=== PATIENT | male | born 2000 | race Caucasian/White ===

== ENCOUNTER 2023-11-24 15:21 | Outpatient (AMB) | payer OTHER, SELFPAY ==
--- NOTE | 2023-11-24 15:54 | MHC.PC.OV ---
Vital Signs 11/24/23 16:02 Height 6 ft 0.2 in Weight 175 lb 6 oz BMI 23.7 BP 116/70 Blood Pressure Location Rt brachial Position Sitting Respiration 16 Pulse 111 H Pulse Source Pulse Oximeter Temp 98.7 F Temp Source Oral Pulse Oximetry (%) 99 Oxygen Delivery Method Room Air Intake Visit Reasons: Establish [facility] [place] Intake Note: New patient visit Accompanied by: Mother Allergies No Known Allergies Allergy (Verified 11/24/23 15:58) Medication List - Last Reconciled 11/24/23 by Mandy Lorenzo MD cetirizine (Children's Zyrtec Allergy) 10 mg PO DAILY psyllium husk (Metamucil) 0.4 grams PO DAILY Saccharomyces boulardii (Digest Probiotic (S.boulardii)) 250 mg PO BID Tobacco use date assessed: 11/24/23 Dental Screening Dental Screen Date: 11/24/23 Did you have a dental visit in the last 12 months?: Yes Did you have a dental problem in the last 6 months where you did not have access to dental care?: No Was dental information given to patient?: Patient has dentist HPI HPI Comments History of Present Illness Details This is a 23 year old male presenting to [facility]. Transferring from pediatrics. Accompanied by mom today 2 concern today -Patient has had chronic issues with anxiety, mild consequent depressive symptoms. As he has aged anxiety seems to have gotten worse or seems to be effecting the quality of life more. For example he went to get his drivers permit. He was so anxious about driving he has been unable to pursue driving alone. He gets fearful about about trying new things, works etc. His sister recently started sertraline with good response. He would be interested in trying this medication. No SI/SA -Patient report ~1 year history of frequent loose stools. He can have 3-4 watery/loose stools per day. Reports kind of chronic but much worse over the past year. Denies blood in the stool. Denies unintentional weight loss. Denies abdominal pain, denies cramping. Denies use of abx, denies travel prior to start of worsened symptoms. Denies worsens with stress. Worse with mild products ROS see HPI PHYSICAL EXAM: GENERAL: Alert and oriented x 3. NAD EYES: EOMI. Anicteric. HENT: Moist mucous membranes. No scleral icterus. No cervical lymphadenopathy. LUNGS: Clear to auscultation bilaterally. CARDIOVASCULAR: Regular rate and rhythm. No murmur. No JVD. ABDOMEN: Soft, non-tender +bs EXTREMITIES: No edema. Non-tender. SKIN: No rashes or lesions. Warm. NEUROLOGIC: No focal neurological deficits. CN II-XII grossly intact PSYCHIATRIC: Cooperative. Appropriate mood and affect [facility] Family History (Updated 11/24/23 @ 16:11 by Adrienne Callejas [facility]) Maternal Grandmother Diabetes Maternal Grandfather Cancer Paternal Grandfather Alcoholism Paternal Grandmother Alcoholism Other Substance use Social History (Updated 11/24/23 @ 16:10 by Adrienne Callejas CMA) Housing: House Patient Tobacco Use Status: Never used Tobacco (Just tried it. ) e-Cigarette/Vaping Use: Never Used Second Hand Smoke Exposure: Yes service: No Current occupational status: unemployed Cognitive needs: No Hearing needs: No Vision needs: No Questionnaire PHQ-9 Over the last 2 weeks, how often have you been bothered by any of the following problems? 1. Little interest or pleasure in doing things: several days 2. Feeling down, depressed, or hopeless: not at all 3. Trouble falling or staying asleep, or sleeping too much: several days 4. Feeling tired or having little energy: more than half the days 5. Poor appetite or overeating: several days 6. Feeling bad about yourself - or that you are a failure or have let yourself or your family down: nearly every day 7. Trouble concentrating on things, such as reading the newspaper or watching television: several days 8. Moving or speaking so slowly that other people could have noticed. Or the opposite - being so fidgety or restless that you have been moving around a lot more than usual: several days 9. Thoughts that you would be better off or of hurting yourself in some way: not at all Total score: 10 Depression Screening Interpretation: Positive Depression Screening Follow-up: New Medication prescribed Depression Screening Done: Yes Source: Developed by Drs. Contreras Mann, Fariba Harden, John De Los Santos and colleagues, with an educational giovanna from [employer]. Thrive Questionnaire Date Thrive assessed: 11/24/23 I am a: Patient What is your living situation today?: I have a steady place to live Within the past 12 months, did the food you bought not last and you didn't have the money to get more?: Never true Within the past 12 months, did you worry whether your food would run out before you got money to buy more?: Never true Do you have trouble paying for medicines?: No Do you have trouble getting transportation to medical appointments?: No Do you have trouble paying your heating and electricity bill?: No Do you have trouble taking care of your child, family member or friend?: No Do you have trouble with day-to-day activities such as bathing, preparing meals, shopping, managing finances, etc.?: No Are you currently unemployed and looking for a job?: No Are you interested in more education?: No Please select the resources that you would like help with: None Currently or been in a relationship where the following occur: no concerns reported THRIVE Score: 0 AUDIT C Alcohol Use Questionnaire (AUDIT-C) 1. How often do you have a drink containing alcohol?: Monthly or less (Beer every couple months) 2. How many drinks containing alcohol do you have on a typical day when you are drinking?: 1 or 2 3. How often do you have six or more drinks on one occasion?: Never Total Score: 1 RELL-7 AMB Questionnaire RELL-7 Date RELL - 7 assessed: 11/24/23 Feeling nervous, anxious, or on edge: 2 = More than half the days Not being able to stop or control worryin = Several days Worrying too much about different things: 1 = Several days Trouble relaxin = Several days Being so restless that it is hard to sit still: 1 = Several days Becoming easily annoyed or irritable: 0 = Not at all Feeling afraid as if something awful might happen: 0 = Not at all Total RELL-7 score (0-4 normal; 5-9 mild; 10-14 moderate; 15-21 severe): 6 Source: Developed by Drs. Contreras Mann, Fariba Harden, John De Los Santos and colleagues, with an educational giovanna from [email or web address] RELL-7 Assessment Billing RELL-7 Assessment Tool: RELL-7 Assessment 82929 Physical exam (Primary Care) Vital Signs: Last Vital Signs Temp 98.7 F 11/24/23 16:02 Pulse 111 H 11/24/23 16:02 Resp 16 11/24/23 16:02 BP 116/70 11/24/23 16:02 Pulse Ox 99 11/24/23 16:02 Oxygen Delivery Method Room Air 11/24/23 16:02 BMI result Body Mass Index 23.7 Tobacco/Smoking Status: Tobacco use Status Tobacco use date assessed 11/24/23 11/24/23 16:06 Patient Tobacco Use Status Never used Tobacco (Just 11/24/23 16:10 tried it. ) e-Cigarette/Vaping Use Never Used 11/24/23 16:10 PHQ-9: PHQ-9 Score PHQ-9: Total score 10 11/26/23 10:14 Depression Screening Interpretation: Positive Depression Screening Follow-up: New Medication prescribed Thrive Assessment: Date of Thrive Assessment Date Thrive assessed 11/24/23 11/24/23 16:12 Currently or been in a relationship where the following occur: no concerns reported Assessment and Plan Assessment & Plan (1) Food allergy: Comment: referral to Allergy, Immunology Code(s): Z91.018 - Allergy to other foods (2) Frequent loose stools: Comment: labs & stool testing ordered. referral to AI. Will consider GI referral Code(s): R19.7 - Diarrhea, unspecified Qualifiers: Diarrhea type: unspecified type Qualified Code(s): R19.7 - Diarrhea, unspecified Orders: Orders TSH reflex Free T4 11/24/23 R19.7 - Diarrhea, unspecified, Z91.018 - Allergy to other foods Comprehensive Met. Panel 11/24/23 R19.7 - Diarrhea, unspecified, Z91.018 - Allergy to other foods H pylori Ag Stool 11/24/23 R19.7 - Diarrhea, unspecified, Z91.018 - Allergy to other foods Giardia Ag Stool EIA 11/24/23 R19.7 - Diarrhea, unspecified, Z91.018 - Allergy to other foods Calprotectin, Fecal 11/24/23 R19.7 - Diarrhea, unspecified, Z91.018 - Allergy to other foods Celiac Disease Panel 11/24/23 R19.7 - Diarrhea, unspecified, Z91.018 - Allergy to other foods Complete Blood Count Auto Diff 11/24/23 R19.7 - Diarrhea, unspecified, Z91.018 - Allergy to other foods Leukocytes Stool Qualitative 11/24/23 R19.7 - Diarrhea, unspecified, Z91.018 - Allergy to other foods Pancreatic Elastase-1 11/24/23 R19.7 - Diarrhea, unspecified, Z91.018 - Allergy to other foods Referrals Allergy & Immunology Referral R19.7 - Diarrhea, unspecified, Z91.018 - Allergy to other foods Medications: New sertraline Take 1/2 tab oral daily for one week then take 1 tab oral daily 25 mg PO DAILY 90 tabs 0RF 90 days Coding Level of Care Code New Pt Level 5 (41624) Diagnoses Food allergy Z91.018 Diarrhea, unspecified type R19.7 Diarrhea type: unspecified type Additional Codes RELL-7 Assessment Billing - RELL-7 Assessment Tool: RELL-7 Assessment 73237 ([id number]) Time Spent (min) 62
[2023-11-24 16:02] VITALS: BP 116/70; PULSE 111; RESP 16; TEMP 37.1; O2SAT 99; BMI 23.7
== END 2023-11-24 16:45 | disposition home or self-care (01) ==
PROVIDERS: Visit Provider Internal Medicine
DX: R19.7 Diarrhea, unspecified (principal); Z91.018 Allergy to other foods; F41.9 Anxiety disorder, unspecified
CPT/HCPCS: 96127; 99205

== ENCOUNTER 2024-01-03 13:53 | Outpatient (REF) | payer OTHER, SELFPAY ==
[2024-01-03 17:54] LABS: MANUAL DIFF FLAG NO
[2024-01-03 17:59] LABS: Basophils Percent Auto 0.9 % (0-2); Eosinophils Absolute Auto 0.1 X10*3/uL (0.0-0.4); Eosinophils Percent Auto 2.8 % (0-4); Hematocrit 44.4 % (42.0-52.0); Hemoglobin 15.3 g/dl (14.0-18.0); Imm Gran Abs Auto 0.01 X10*3/uL (0.00-0.03); Imm Gran Pct Auto 0.2 % (0.0-0.4); Lymphocytes Absolute Auto 1.7 X10*3/uL (1.2-4.9); Lymphocytes Percent Auto 40.1 % (20-40); Mean Corpuscular HGB Conc 34.5 g/dl (31.0-36.0); Mean Corpuscular Hemoglobin 29.8 pg (27.0-33.0); Mean Corpuscular Volume 86.4 fL (80.0-98.0); Monocytes Absolute Auto 0.4 X10*3/uL (0.1-1.2); Monocytes Percent Auto 10.3 % (2-11); Neutrophils Percent Auto 45.7 % (45-73); Platelet Count 262 X10*3/uL (160-400); Red Blood Count 5.14 X10*6/uL (4.60-5.80); Red Cell Distribution Width 12.4 % (11.0-16.0); White Blood Count 4.3 X10*3/uL (4.8-10.8)
[2024-01-03 18:47] LABS: Alanine Aminotransferase 14 U/L (0-40); Albumin Level 4.8 g/dL (3.5-5.0); Alkaline Phosphatase 87 U/L (39-117); Anion Gap 12 (12-20); Aspartate Amino Transferase 19 U/L (5-37); Bilirubin Total 1.1 mg/dL (0.0-1.0); Blood Urea Nitrogen 12 mg/dL (9-16); Carbon Dioxide 27 mmol/L (22-29); Chloride 106 mmol/L (96-108); Estimated Glomerular Filt Rate > 60; Glucose Random 91 mg/dL (60-115); Potassium 3.8 mmol/L (3.3-5.1); Sodium 141 mmol/L (135-145); Total Protein 7.3 g/dL (6.5-8.0)
[2024-01-03 19:02] LABS: TSH reflex Free T4 0.59 uIU/mL (0.32-4.0)
== END 2024-01-03 13:54 | disposition home or self-care (01) ==
LOC: HO.WFDLDS 13:53
PROVIDERS: Visit Provider Internal Medicine
DX: R19.7 Diarrhea, unspecified (principal); Z91.018 Allergy to other foods
CPT/HCPCS: 36415; 80053; 84443; 85025

== ENCOUNTER 2024-01-26 11:18 | Outpatient (AMB) | payer OTHER, SELFPAY ==
[2024-01-26 11:24] VITALS: BP 134/66; PULSE 71; RESP 12; O2SAT 98; BMI 23.7
--- NOTE | 2024-01-26 11:24 | MHC.PC.OV ---
Vital Signs 01/26/24 11:24 Height 6 ft Weight 175 lb BMI 23.7 BP 134/66 Blood Pressure Location Lt brachial Position Sitting Respiration 12 Pulse 71 Pulse Source Pulse Oximeter Pulse Oximetry (%) 98 Oxygen Delivery Method Room Air Intake Visit Reasons: f/up anxiety, GI Intake Note: Patient is here to follow up for anxiety and abdominal concerns. Patient reports no new concerns at this time. Athletic Coach Required: No Accompanied by: Self / Same As Patient Allergies No Known Allergies Allergy (Verified 01/26/24 11:29) Tobacco use date assessed: 11/24/23 Dental Screening Dental Screen Date: 11/24/23 HPI HPI Comments History of Present Illness Details This is a 23 year old male presenting for follow up 2 ongoing concerns -the patient has not any benefit on sertraline 25 mg daily. He denies worsening of symptoms. He denies side effects of medication. has had chronic issues with anxiety, mild consequent depressive symptoms. As he has aged anxiety seems to have gotten worse or seems to be effecting the quality of life more. For example he went to get his drivers permit. He was so anxious about driving he has been unable to pursue driving alone. He gets fearful about about trying new things, works etc. His sister recently started sertraline with good response. He would be interested in trying this medication. No SI/SA -Patient report ~1 year history of frequent loose stools. He can have 3-4 watery/loose stools per day. Reports kind of chronic but much worse over the past year. Denies blood in the stool. Denies unintentional weight loss. Denies abdominal pain, denies cramping. Denies use of abx, denies travel prior to start of worsened symptoms. Denies worsens with stress. Worse with mild products. He has stool studies ordered but has not completed this yet. He does plan to do this this week. He did get a referral to Allergy but them to schedule appointment. He may opt to see Gastroenterology. there is a family history of ulcerative colitis ROS see HPI PHYSICAL EXAM: GENERAL: Alert and oriented x 3. NAD EYES: EOMI. Anicteric. HENT: Moist mucous membranes. No scleral icterus. No cervical lymphadenopathy. LUNGS: Clear to auscultation bilaterally. CARDIOVASCULAR: Regular rate and rhythm. No murmur. No JVD. ABDOMEN: Soft, non-tender +bs EXTREMITIES: No edema. Non-tender. SKIN: No rashes or lesions. Warm. NEUROLOGIC: No focal neurological deficits. CN II-XII grossly intact PSYCHIATRIC: Cooperative. Appropriate mood and affect [facility] Family History (Updated 11/24/23 @ 16:11 by Adrienne Callejas CMA) Maternal Grandmother Diabetes Maternal Grandfather Cancer Paternal Grandfather Alcoholism Paternal Grandmother Alcoholism Other Substance use Social History (Updated 11/24/23 @ 16:10 by Adrienne Callejas CMA) Housing: House Patient Tobacco Use Status: Never used Tobacco (Just tried it. ) e-Cigarette/Vaping Use: Never Used Second Hand Smoke Exposure: Yes service: No Current occupational status: unemployed Cognitive needs: No Hearing needs: No Vision needs: No Questionnaire Thrive Questionnaire Date Thrive assessed: 11/24/23 RELL-7 AMB Questionnaire RELL-7 Date RELL - 7 assessed: 11/24/23 Source: Developed by Drs. Contreras Mann, Fariba Harden, John De Los Santos and colleagues, with an educational giovanna from [employer]. Physical exam (Primary Care) Vital Signs: Last Vital Signs Pulse 71 01/26/24 11:24 Resp 12 01/26/24 11:24 BP 134/66 01/26/24 11:24 Pulse Ox 98 01/26/24 11:24 Oxygen Delivery Method Room Air 01/26/24 11:24 BMI result Body Mass Index 23.7 Tobacco/Smoking Status: Tobacco use Status Tobacco use date assessed 11/24/23 01/26/24 11:29 Patient Tobacco Use Status Never used Tobacco (Just 01/26/24 11:29 tried it. ) e-Cigarette/Vaping Use Never Used 01/26/24 11:29 Thrive Assessment: Date of Thrive Assessment Date Thrive assessed 11/24/23 01/26/24 11:29 Assessment and Plan Assessment & Plan (1) Anxiety: Code(s): F41.9 - Anxiety disorder, unspecified Plan: We will increase the dose of sertraline to 50 mg daily and follow-up in 3 weeks-okay for telehealth. (2) Frequent loose stools: Comment: stool testing to be performed. referred to AI. Will consider GI referral Code(s): R19.7 - Diarrhea, unspecified Qualifiers: Diarrhea type: unspecified type Qualified Code(s): R19.7 - Diarrhea, unspecified Medications: New sertraline 50 mg PO DAILY 90 tabs 3RF Discontinued sertraline Take 1/2 tab oral daily for one week then take 1 tab oral daily Discontinued Reason: Doctor's Order 25 mg PO DAILY 90 days 90 tabs 0RF Coding Level of Care Code Est Pt Level 4 (89035) Complex EM visit Add On G2211 Diagnoses Anxiety F41.9 Diarrhea, unspecified type R19.7 Diarrhea type: unspecified type
== END 2024-01-26 11:58 | disposition home or self-care (01) ==
PROVIDERS: PCP Internal Medicine; Visit Provider Internal Medicine
DX: F41.9 Anxiety disorder, unspecified (principal); R19.7 Diarrhea, unspecified
CPT/HCPCS: 99214

== ENCOUNTER 2024-02-16 17:42 | Outpatient (REF) | payer OTHER, SELFPAY ==
[2024-02-16 18:39] LABS: Leukocytes Stool Qualitative NEGATIVE (NEGATIVE)
[2024-02-23 23:13] LABS: Pancreatic Elastase-1 >500 mcg/g
[2024-02-24 22:59] LABS: Calprotectin, Fecal 6 mcg/g
== END 2024-02-16 17:43 | disposition home or self-care (01) ==
LOC: HO.LNP 17:42
PROVIDERS: Visit Provider Internal Medicine
DX: R19.7 Diarrhea, unspecified (principal); Z91.018 Allergy to other foods
CPT/HCPCS: 82656; 83993; 87338; 89055

== ENCOUNTER 2024-02-26 14:36 | Outpatient (AMB) | payer OTHER, SELFPAY ==
--- NOTE | 2024-02-26 13:35 | A.OFFPC_ITS ---
Intake Visit Reasons: phone f/up med Allergies No Known Allergies Allergy (Verified 01/26/24 11:29) Tobacco use date assessed: 11/24/23 Dental Screening Dental Screen Date: 11/24/23 HPI HPI Comments History of Present Illness Details This is a 23 year old male presenting for follow up 2 ongoing concerns -the patient still has not felt any bene fit on sertraline even after going up to 50mg daily. He denies worsening of symptoms. He denies side effects of medication. has had chronic issues with anxiety, mild consequent depressive symptoms. As he has aged anxiety seems to have gotten worse or seems to be effecting the quality of life more. For example he went to get his drivers permit. He was so anxious about driving he has been unable to pursue driving alone. He gets fearful about about trying new things, works etc. His sister recently started sertraline with good response. He would be interested in trying this medication. No SI/SA -Patient is suffereing from ~1 year his tory of frequent loose stools. He can have 3-4 watery/loose stools per day. Reports kind of chronic but much worse over the past year. Denies blood in the stool. Denies unintentional weight loss. Denies abdominal pain, denies cramping. Denies use of abx, denies travel prior to start of worsened symptoms. Denies worsens with stress. Worse with milk products. Fecal calprotectin, pancreatic elastase and H pylori normal. He did get a referral to Allergy. He would like a referral to gastroenterology ROS see HPI PHYSICAL EXAM: GENERAL: Alert and oriented x 3. NAD EYES: EOMI. Anicteric. HENT: Moist mucous membranes. No scleral icterus. No cervical lymphadenopathy. LUNGS: Clear to auscultation bilaterally. CARDIOVASCULAR: Regular rate and rhythm. No murmur. No JVD. ABDOMEN: Soft, non-tender +bs EXTREMITIES: No edema. Non-tender. SKIN: No rashes or lesions. Warm. NEUROLOGIC: No focal neurological deficits. CN II-XII grossly intact PSYCHIATRIC: Cooperative. Appropriate mood and affect [facility] Family History Maternal Grandmother Diabetes Maternal Grandfather Cancer Paternal Grandfather Alcoholism Paternal Grandmother Alcoholism Other Substance use Social History Housing: House Patient Tobacco Use Status: Never used Tobacco (Just tried it. ) e-Cigarette/Vaping Use: Never Used Second Hand Smoke Exposure: Yes service: No Current occupational status: unemployed Cognitive needs: No Hearing needs: No Vision needs: No Questionnaire Thrive Questionnaire Date Thrive assessed: 11/24/23 RELL-7 AMB Questionnaire RELL-7 Date RELL - 7 assessed: 11/24/23 Source: Developed by Drs. Contreras Mann, Fariba Harden, John De Los Santos and colleagues, with an educational giovanna from [employer]. Physical exam (Primary Care) Tobacco/Smoking Status: Tobacco use Status Tobacco use date assessed 11/24/23 02/26/24 13:36 Patient Tobacco Use Status Never used Tobacco (Just 02/26/24 13:36 tried it. ) e-Cigarette/Vaping Use Never Used 02/26/24 13:36 Thrive Assessment: Date of Thrive Assessment Date Thrive assessed 11/24/23 02/26/24 13:36 Telehealth Telehealth Telehealth Platform: [employer] Location of provider rendering services: practice address Location of patient: address on file Patient Identification confirmed using: Name, : Yes Telehealth method: voice only Patient verbally consented to treatment: Yes Patient verbally consented to billing insurance company: Yes Patient informed of any privacy concerns related to visit: Yes Minutes spent on Phone/Video with Pt.: 35 Assessment and Plan Assessment & Plan (1) Frequent loose stools: Code(s): R19.7 - Diarrhea, unspecified Qualifiers: Diarrhea type: unspecified type Qualified Code(s): R19.7 - Diarrhea, unspecified Plan: Discussed reassuring labs, stool studies. No stool O&A, giardia. Referral to gastroenterology placed. Patient will aso see allergy (2) Anxiety: Code(s): F41.9 - Anxiety disorder, unspecified Plan: Will try increasing zoloft to 100mg daily. Certainly if no benefit on this does will consider alternate SSRI Orders: Referrals Gastroenterology Referral R19.7 - Diarrhea, unspecified, Z91.018 - Allergy to other foods Medications: New sertraline 100 mg PO DAILY 90 tabs 3RF Discontinued sertraline Discontinued Reason: Doctor's Order 50 mg PO DAILY 90 tabs 3RF Coding Level of Care Code Tele Est Pt Level 4 (43740) Diagnoses Diarrhea, unspecified type R19.7 Diarrhea type: unspecified type Anxiety F41.9
== END 2024-02-26 17:04 | disposition home or self-care (01) ==
LOC: HO.HMCFM 14:36
PROVIDERS: PCP Internal Medicine; Visit Provider Internal Medicine
DX: R19.7 Diarrhea, unspecified (principal); F41.9 Anxiety disorder, unspecified

== ENCOUNTER → 2024-02-26 14:36 | Outpatient (BNVA) | payer OTHER, SELFPAY | PROVIDERS: PCP Internal Medicine; Visit Provider Internal Medicine | DX: R19.7 Diarrhea, unspecified (principal); Z91.018 Allergy to other foods ==

== ENCOUNTER 2024-04-01 11:20 | Outpatient (AMB) | payer OTHER, SELFPAY ==
--- NOTE | 2024-04-01 11:29 | MHC.PC.OV ---
Intake Visit Reasons: Follow up meds Allergies No Known Allergies Allergy (Verified 01/26/24 11:29) Tobacco use date assessed: 11/24/23 Dental Screening Dental Screen Date: 11/24/23 HPI HPI Comments History of Present Illness Details This is a 23 year old male presenting for follow up 2 ongoing concerns -the patient has improved on sertraline 100mg daily. Had not benefited from lesser dosing. He denies side effects of medication. has had chronic issues with anxiety, mild consequent depressive symptoms. As he has aged anxiety seems to have gotten worse or seems to be effecting the quality of life more. For example he went to get his drivers permit. He was so anxious about driving he has been unable to pursue driving alone. He gets fearful about about trying new things, works etc. His sister recently started sertraline with good response. He would be interested in trying this medication. No SI/SA -Patient is suffering from ~1 year history of frequent loose stools. He can have 3-4 watery/loose stools per day. Reports kind of chronic but much worse over the past year. Denies blood in the stool. Denies unintentional weight loss. Denies abdominal pain, denies cramping. Denies use of abx, denies travel prior to start of worsened symptoms. Denies worsens with stress. Worse with milk products. Fecal calprotectin, pancreatic elastase and H pylori normal. He did get a referral to Allergy. Referred to gastroenterology ROS see HPI [facility] Family History Maternal Grandmother Diabetes Maternal Grandfather Cancer Paternal Grandfather Alcoholism Paternal Grandmother Alcoholism Other Substance use Social History Housing: House Patient Tobacco Use Status: Never used Tobacco (Just tried it. ) e-Cigarette/Vaping Use: Never Used Second Hand Smoke Exposure: Yes service: No Current occupational status: unemployed Cognitive needs: No Hearing needs: No Vision needs: No Questionnaire Thrive Questionnaire Date Thrive assessed: 11/24/23 RELL-7 AMB Questionnaire RELL-7 Date RELL - 7 assessed: 11/24/23 Source: Developed by Drs. Contreras Mann, Fariba Harden, John De Los Santos and colleagues, with an educational giovanna from [employer]. Physical exam (Primary Care) Tobacco/Smoking Status: Tobacco use Status Tobacco use date assessed 11/24/23 04/01/24 11:29 Patient Tobacco Use Status Never used Tobacco (Just 04/01/24 11:29 tried it. ) e-Cigarette/Vaping Use Never Used 04/01/24 11:29 Thrive Assessment: Date of Thrive Assessment Date Thrive assessed 11/24/23 04/01/24 11:29 Telehealth Telehealth Telehealth Platform: [facility] Location of provider rendering services: practice address Location of patient: address on file Patient Identification confirmed using: Name, : Yes Telehealth method: voice only Patient verbally consented to treatment: Yes Patient verbally consented to billing insurance company: Yes Patient informed of any privacy concerns related to visit: Yes Minutes spent on Phone/Video with Pt.: 33 Coding Level of Care Code Tele Est Pt Level 4 (43539) Diagnoses Anxiety F41.9 Diarrhea, unspecified type R19.7 Diarrhea type: unspecified type Assessment & Plan Assessment & Plan (1) Anxiety: Code(s): F41.9 - Anxiety disorder, unspecified Category: Medical Plan: Improvement on sertraline 100mg daily. He will stay on the current dose (2) Frequent loose stools: Code(s): R19.7 - Diarrhea, unspecified Category: Medical Qualifiers: Diarrhea type: unspecified type Qualified Code(s): R19.7 - Diarrhea, unspecified Plan: Labs/stool have been reassuring. Will refer to GI for possible endoscopy or medical treatment
== END 2024-04-01 11:36 | disposition home or self-care (01) ==
LOC: HO.HMCFM 11:20
PROVIDERS: PCP Internal Medicine; Visit Provider Internal Medicine
DX: F41.9 Anxiety disorder, unspecified (principal); R19.7 Diarrhea, unspecified

== ENCOUNTER → 2024-04-01 11:20 | Outpatient (BNVA) | payer OTHER, SELFPAY | PROVIDERS: PCP Internal Medicine; Visit Provider Internal Medicine ==

== ENCOUNTER 2025-03-10 15:51 | Outpatient (AMB) | payer OTHER, SELFPAY ==
--- NOTE | 2025-03-10 15:44 | MHC.PC.OV ---
Intake Visit Reasons: F/u Medication review Intake Note: Medication follow up Quality Assurance Inspector Required: No Allergies No Known Allergies Allergy (Verified 01/26/24 11:29) Tobacco use date assessed: 03/10/25 Dental Screening Dental Screen Date: 03/10/25 Did you have a dental visit in the last 12 months?: Yes Did you have a dental problem in the last 6 months where you did not have access to dental care?: No Was dental information given to patient?: Patient has dentist HPI HPI Comments History of Present Illness Details This is a 23 year old male presenting for follow up 2 ongoing concerns -the patient has improved on sertraline 100mg daily. Had not benefited from lesser dosing. He denies side effects of medication. He notes that he still has bothersome anxiety at time and sometimes panic attacks. has had chronic issues with anxiety, mild consequent depressive symptoms. As he has aged anxiety seems to have gotten worse or seems to be effecting the quality of life more. For example he went to get his drivers permit. He was so anxious about driving he has been unable to pursue driving alone. He gets fearful about about trying new things, works etc. His sister recently started sertraline with good response. He would be interested in trying this medication. No SI/SA GI-Patient is suffering from >1 year history of frequent loose stools. He can have 3-4 watery/loose stools per day. Reports kind of chronic but much worse over the past year. Denies blood in the stool. Denies unintentional weight loss. Denies abdominal pain, denies cramping. Denies use of abx, denies travel prior to start of worsened symptoms. Denies worsens with stress. Worse with milk products. Fecal calprotectin, pancreatic elastase and H pylori normal. He did get a referral to Allergy. Referred to gastroenterology-he is scheduled for May see HPI PHYSICAL EXAM: Telehealth [facility] Family History Maternal Grandmother Diabetes Maternal Grandfather Cancer Paternal Grandfather Alcoholism Paternal Grandmother Alcoholism Other Substance use Social History Housing: House Alcohol intake: current Patient Tobacco Use Status: Never used Tobacco (Just tried it. ) e-Cigarette/Vaping Use: Never Used Second Hand Smoke Exposure: Yes service: No Current occupational status: unemployed Cognitive needs: No Hearing needs: No Vision needs: No Questionnaire Thrive Questionnaire Date Thrive assessed: 11/24/23 RELL-7 AMB Questionnaire RELL-7 Date RELL - 7 assessed: 11/24/23 Source: Developed by Drs. Contreras Mann, Fariba Harden, John De Los Santos and colleagues, with an educational giovanna from [employer]. Physical exam (Primary Care) Tobacco/Smoking Status: Tobacco use Status Tobacco use date assessed 03/10/25 03/10/25 15:46 Patient Tobacco Use Status Never used Tobacco (Just 03/10/25 15:46 tried it. ) e-Cigarette/Vaping Use Never Used 03/10/25 15:46 Thrive Assessment: Date of Thrive Assessment Date Thrive assessed 11/24/23 03/10/25 15:46 Telehealth Telehealth Telehealth Platform: Telephone Location of provider rendering services: practice address Location of patient: address on file Patient Identification confirmed using: Name, : Yes Telehealth method: voice only Patient verbally consented to treatment: Yes Patient verbally consented to billing insurance company: Yes Patient informed of any privacy concerns related to visit: Yes Minutes spent on Phone/Video with Pt.: 22 Coding Level of Care Code Est Pt Level 3 (16264) Diagnoses Anxiety F41.9 Diarrhea, unspecified type R19.7 Diarrhea type: unspecified type Assessment & Plan Assessment & Plan (1) Anxiety: Code(s): F41.9 - Anxiety disorder, unspecified Category: Medical (2) Frequent loose stools: Code(s): R19.7 - Diarrhea, unspecified Category: Medical Qualifiers: Diarrhea type: unspecified type Qualified Code(s): R19.7 - Diarrhea, unspecified Plan Anxiety-Add buspar. We discussed potentially increased sertraline GI-he has consultation pending Medications: New buspirone 10 mg PO BID 180 tabs 3RF 90 days
--- OUTSIDE RECORDS SUMMARY | 2025-03-10 18:10 | XMS_ITS | Encounter Summary ---
Author Organization [facility] Address [address] [place] [address] Phone Care Team Providers Care Stack Attendant Name Role Phone Contreras Hightower MD Primary Care Provider [phone] Encounter Details Date Type Department Care Team (Late st Contact Info) Description 10/22/2017 Conversion Encounter Child [facility] [address] [phone] Social History Tobacco Use Types Packs/Day Years Used Date Smoking Tobacco: Never Assessed Sex and Gender Information Value Date Recorded Sex Assigned at Not on file Legal Sex Male 6:16 PM EDT Gender Identity Not on file Sexual Orientation Not on file documented as of this encounter Plan of Treatment Not on file documented as of this encounter Visit Diagnoses Not on filedocumented in this encounter Care Teams Stack Attendant Relationship Specialty Start Date End Date Contreras Hightower MD [address] [place] [address] PCP - General 10/11/17 04/01/24 documented as of this encounter
--- OUTSIDE RECORDS SUMMARY | 2025-03-10 18:10 | XMS_ITS | Encounter Summary ---
Author Organization [facility] Address [address] [place] [address] Phone Care Team Providers Care Metal Furniture Polisher Name Role Phone Contreras Hightower MD Primary Care Provider [phone] Encounter Details Date Type Department Care Team (Late st Contact Info) Description 10/22/2017 [facility]version [facility]counter [facility] [address] [place] [address] Contreras Hightower MD [address] [place] [address] Social History Tobacco Use Types Packs/Day Years [...] on filedocumented in this encounter Care Teams Metal Furniture Polisher Relationship Specialty Start Date End Date Contreras Hightower MD [address] [place] [address] PCP - General 10/11/17 04/01/24 documented as of this encounter
--- OUTSIDE RECORDS SUMMARY | 2025-03-10 18:10 | XMS_ITS | Clinical Summary ---
Author Organization [facility] Address [address] [place] [address] Phone Care Team Providers Care Perinatal Director Name Role Phone Unavailable Primary Care Provider Unavailabl e Allergies No known active allergies Medications No known medications Active Problems Problem Noted Date Diagnosed Date Influenza vaccination declined 07/05/2018 Overview (07/05/2018): 07/05/18 Assessment & Plan (07/05/2018 12:53 PM EST): Declines flu shot today. Discussed myths around flu shot and potential benefits. Discussed risk of flu and potential for serious complications for some kids. May call and return for flu shot at any time if changes mind. Seasonal allergic rhinitis due to pollen 018 Resolved Problems Problem Noted Date Diagnosed Date Resolved Date Generalized abdominal pain 07/05/2018 0 10/25/2019 Assessment & Plan (08/07/2018 12:09 PM EST): Glad to see that Renzo has maintained his weight and is up a little. Discussed differential with mom and Renzo, including GERD, esophagitis, brain-gut connection issues. Mom would like to see how he does next week when they are on school break. If he is still having reflux issues or complaints, mom will plan to start him on OTC zantac or Prilosec for 2-4 weeks. They will call or return if no improvement, new symptoms, gets worse or any worries. Immunizations Immunization Administration Dates Next Due DTaP 03/26/2008, 8,05/21/2004, 004,03/24/2003,03/24/2003,01/13/2003,04/2003,2002,2002 HPV Vaccine 9 Valent 01/08/2019,08/07/2018,07/05 Hep A 01/26/2012,06/17/2011 Hep A, ped/adol 01/26/2012,06/17/2011 Hep B 06/16/2003,2002,2002 Hep B, ped/adol 06/16/2003,2002,2002 HiB 12/24/2003, 3,01/13/2003, 003 Hib (PRP-T) 12/24/2003, 3,01/13/2003, 003 IPV 03/26/2008, 8,05/21/2004, 004,01/13/2003,01/13/2003,2002,04/2003 Influenza 06/13/2004 MMR 03/26/2008, 8,09/23/2003, 004 Meningococcal Conj (Menactra) MCV4P 01/08/2019,0 01/15/2015,01/15/2015 Pneumococcal Conjugate 05/21/2004,2003,03/24/2003, 003,01/13/2003,01/13/2003,2002,04/2003 Tdap 01/15/2015,01/15/2015 Typhoid 06/17/2011 Typhoid, ViCPs 06/17/2011 Varicella 03/26/2008, 8,09/23/2003, 004 Family History Medical History Relation Name Comments Allergies Father PCN and bees Arrhythmia Maternal Grandfather Diabetes type II Maternal Grandmother No Known Problems Mother Heart disease Paternal Grandmother Scoliosis Sister Relation Name Status Comments Father Alive Maternal Grandfather Alive Maternal Grandmother Alive Mother Alive Other : borderline DM : mgm mbro: prediabetic, age 47 mgf: cardiac issue with arrhythmia, sleep apnea Irritable Bowl Syndrome : mgm Food Allergies : father Colitis : mgm Paternal Grandfather Paternal Grandmother Alive Sister Alive Social History Tobacco Use Types Packs/Day Years Used Date Smoking Tobacco: Never Smokeless Tobacco: Never Alcohol Use Standard Drinks/Week Comments Never 0 (1 standard drink = 0.6 oz pur e alcohol) Hunger/Food Answer Date Recorded In the last 12 months, did y ou or your family ever eat less than you felt you should because there wasn't enough money for food? No 10/25/2019 Stable Housing Answer Date Recorded Are you worried that in the next 2 months you may not have stable housing? No 10/25/2019 Transportation Concerns Answer Date Rec orded In the last 12 months, have you or your family ever had to go without healthcare because you didn't have a way to get there? No 10/25/2019 Hazards in Home Answer Date Recorded Think about the place you li ve. Do you have problems with any of the following? Pests (mice or roaches), mold, no/not working smoke detectors, water leaks, no window guards. No 2019 Financing Utilities Answer Date Recorde d In the last 12 months, has t he electric, gas, oil, or water company threatened to shut off your services in your home? No 10/25/2019 Safety at Home Answer Date Recorded Are you or your family worried about feeling saf e in your home? No 10/25/2019 Outside Support Answer Date Recorded Do you feel that you need mo re support from other people or programs to help you care for yourself or your family? No 10/25/2019 Understanding Health Concerns Answer Da te Recorded Do you need help understandi ng your or your child's healthcare needs (diagnosis, medications, plan, etc.)? No 10/25/2019 Financing Health Concerns Answer Date R ecorded In the last 12 months, was t here a time when your child needed to see a doctor or get medications or supplies but could not because of cost? No 10/25/2019 Missing School or Work Answer Date Giles rded Did you or your child miss s chool or work because of a health problem that could have been avoided? No 10/25/2019 Sex and Gender Information Value Date Recorded Sex Assigned at Not on file Legal Sex Male 6:16 PM EDT Gender Identity Not on file Sexual Orientation Not on file Last Filed Vital Signs Vital Sign Reading Time Taken Comments Blood Pressure 114/74 10/25/2019 9:12 AM EDT Pulse - - Temperature 36.7 C (98.1 F) 02/06/2019 10:48 AM EDT Respiratory Rate - - Oxygen Saturation - - Inhaled Oxygen Concentration - - Weight 68.9 kg (152 lb) 10/25/2019 9:12 AM EDT Height 183.5 cm (6' 0.25 ) 10/25/2019 9:12 AM ED T Body Mass Index 20.47 10/25/2019 9:12 AM EDT Plan of Treatment Health Maintenance Due Date Last Done Comments Men B Vaccine (1 of 2 - Standard) 2018 Influenza Vaccines (#1) 2025 06/13/2004 DTaP,Tdap,and Td Vaccines (8 - Td or Tdap) 01/15/2025 01/15/2015, 01/15/2015, 03/26/2008, Additional history exists COVID-19 Vaccine (3 - 2024-2 6 season) 2025 10/25/2020, 10/04/2020 Hepatitis B Vaccines Completed 06/16/2003, 06/16/2003, 2002, Additional history exists HIB Vaccines Completed 12/24/2003, 12/04, 03/24/2003, Additional history exists Pneumococcal Vaccine Completed 05/21/2004, 05/21/2004, 03/24/2003, Additional history exists IPV Vaccines Completed 03/26/2008, 03/06, 05/21/2004, Additional history exists MMR Vaccines Completed 03/26/2008, 03/06, 09/23/2003, Additional history exists Varicella Vaccines Completed 03/26/2008, 1 , 09/23/2003, Additional history exists Hepatitis A Vaccines Completed 01/26/2012, 01/26/2012, 06/17/2011, Additional history exists HPV Vaccines Completed 01/08/2019, 10/2018, 07/05/2018 Meningococcal Vaccine Completed 01/08/2019 , 01/15/2015, 01/15/2015 Insurance [facility] PUBLIC DIRECT
== END 2025-03-10 17:05 | disposition home or self-care (01) ==
LOC: HO.HMCFM 15:51
PROVIDERS: PCP Internal Medicine; Visit Provider Internal Medicine
DX: F41.9 Anxiety disorder, unspecified (principal); R19.7 Diarrhea, unspecified

== ENCOUNTER → 2025-04-29 16:27 | Outpatient (AMB) | payer OTHER, SELFPAY ==
--- NOTE | 2025-04-29 16:07 | MHC.PC.OV ---
Intake Visit Reasons: 6 week phone follow up Intake Note: Six week follow Multi Slide Machine Tender Required: No Allergies No Known Allergies Allergy (Verified 04/29/25 16:08) Tobacco use date assessed: 04/29/25 Dental Screening Dental Screen Date: 04/29/25 Did you have a dental visit in the last 12 months?: Yes Did you have a dental problem in the last 6 months where you did not have access to dental care?: No Was dental information given to patient?: Patient has dentist HPI HPI Comments History of Present Illness Details This is a 24 year old male presenting for follow up (telehealth) 2 ongoing concerns -the patient has improved on sertraline 100mg daily. Had not benefited from lesser dosing. Some improvement as well with buspar. Willing to try to increase frequency. He denies side effects of medication. has had chronic issues with anxiety, mild consequent depressive symptoms. As he has aged anxiety seems to have gotten worse or seems to be effecting the quality of life more. For example he went to get his drivers permit. He was so anxious about driving he has been unable to pursue driving alone. He gets fearful about about trying new things, works etc. His sister recently started sertraline with good response. He would be interested in trying this medication. No SI/SA GI-Patient is suffering from >1 year history of frequent loose stools. He can have 3-4 watery/loose stools per day. Reports kind of chronic but much worse over the past year. Denies blood in the stool. Denies unintentional weight loss. Denies abdominal pain, denies cramping. Denies use of abx, denies travel prior to start of worsened symptoms. Denies worsens with stress. Worse with milk products. Fecal calprotectin, pancreatic elastase and H pylori normal. He did get a referral to Allergy. Referred to gastroenterology-he is scheduled for May see HPI PHYSICAL EXAM: Telehealth COUNT [facility] Surgical History Fults teeth removed Family History Maternal Grandmother Diabetes Maternal Grandfather Cancer Paternal Grandfather Alcoholism Paternal Grandmother Alcoholism Other Substance use Social History Housing: House Alcohol intake: current Patient Tobacco Use Status: Former Tobacco user (Just tried it. ) Years Smoked: 2 e-Cigarette/Vaping Use: Never Used Second Hand Smoke Exposure: Yes Use of substances other than those prescribed or required for medical reasons: No service: No Current occupational status: unemployed Cognitive needs: No Hearing needs: No Vision needs: No Questionnaire Thrive Questionnaire Date Thrive assessed: 11/24/23 AUDIT C Alcohol Use Questionnaire (AUDIT-C) 1. How often do you have a drink containing alcohol?: 2-4 times a month 2. How many drinks containing alcohol do you have on a typical day when you are drinking?: 1 or 2 3. How often do you have six or more drinks on one occasion?: Never Total Score: 2 RELL-7 AMB Questionnaire RELL-7 Date RELL - 7 assessed: 11/24/23 Source: Developed by Drs. Contreras Mann, Fariba Harden, John De Los Santos and colleagues, with an educational giovanna from [employer]. Physical exam (Primary Care) Tobacco/Smoking Status: Tobacco use Status Tobacco use date assessed 04/29/25 04/29/25 16:12 Patient Tobacco Use Status Former Tobacco user (Just 04/29/25 16:12 tried it. ) e-Cigarette/Vaping Use Never Used 04/29/25 16:12 Thrive Assessment: Date of Thrive Assessment Date Thrive assessed 11/24/23 04/29/25 16:12 Telehealth Telehealth Telehealth Platform: Telephone Location of provider rendering services: practice address Location of patient: address on file Patient Identification confirmed using: Name, : Yes Telehealth method: voice only Patient verbally consented to treatment: Yes Patient verbally consented to billing insurance company: Yes Patient informed of any privacy concerns related to visit: Yes Minutes spent on Phone/Video with Pt.: 22 Coding Level of Care Code Tele Est Pt Level 4 (41421) Diagnoses Anxiety F41.9 Diarrhea, unspecified type R19.7 Diarrhea type: unspecified type Assessment & Plan Assessment & Plan (1) Anxiety: Code(s): F41.9 - Anxiety disorder, unspecified Category: Medical (2) Frequent loose stools: Code(s): R19.7 - Diarrhea, unspecified Category: Medical Qualifiers: Diarrhea type: unspecified type Qualified Code(s): R19.7 - Diarrhea, unspecified Plan 24 year old for follow up Fairly well controlled on zoloft Intermittent increase anxiety, panic. Increase buspar to TID prn Medications: New buspirone 10 mg PO TID 270 tabs 3RF
--- OUTSIDE RECORDS SUMMARY | 2025-04-29 19:34 | XMS_ITS | Clinical Summary ---
Author Organization [facility] Address [address] [place] [address] Phone Care Team Providers Care Product Handler Name Role Phone Unavailable Primary Care Provider [...] Vaccine Completed 01/08/2019 , 01/15/2015, 01/15/2015 Insurance [facility] PUBLIC DIRECT
--- OUTSIDE RECORDS SUMMARY | 2025-04-29 19:34 | XMS_ITS | Encounter Summary ---
Author Organization [facility] Address [address] [place] [address] Phone Care Team Providers Care Roller Helper Name Role Phone Contreras Hightower MD Primary Care Provider [phone] Encounter Details Date Type Department Care Team (Late st Contact Info) Description 10/22/2017 Conversion Encounter Child Health [address] [phone] Social History Tobacco Use Types Packs/Day Years [...] on filedocumented in this encounter Care Teams Roller Helper Relationship Specialty Start Date End Date Contreras Hightower MD [address] [place] [address] PCP - General 10/11/17 04/01/24 documented as of this encounter
--- OUTSIDE RECORDS SUMMARY | 2025-04-29 19:34 | XMS_ITS | Encounter Summary ---
Author Organization [facility] Address [address] [place] [address] Phone Care Team Providers Care Relief Map Modeler Name Role Phone Contreras Hightower MD Primary Care Provider [phone] Encounter Details Date Type Department Care Team (Late st Contact Info) Description 10/22/2017 Conversion [facility]counter [facility] [address] [place] [address] Contreras Hightower MD [address] [place] [address] Social History Tobacco Use Types Packs/Day Years [...] on filedocumented in this encounter Care Teams Relief Map Modeler Relationship Specialty Start Date End Date Contreras Hightower MD [address] [place] [address] PCP - General 10/11/17 04/01/24 documented as of this encounter
== END ==
LOC: HO.HMCFM 16:27
PROVIDERS: PCP Internal Medicine; Visit Provider Internal Medicine
DX: F41.9 Anxiety disorder, unspecified (principal); R19.7 Diarrhea, unspecified

== ENCOUNTER 2025-05-20 14:05 | Outpatient (AMB) | payer OTHER, SELFPAY ==
--- NOTE | 2025-05-20 14:23 | A.OFFVIS_ITS ---
Vital Signs 05/20/25 14:34 Height 6 ft Weight 179 lb BMI 24.3 BP 148/70 H Blood Pressure Location Lt brachial Position Sitting Pulse 84 Pulse Source Pulse Oximeter Pulse Oximetry (%) 98 Oxygen Delivery Method Room Air Intake Visit Reasons: Chronic diarrhea, ? food intolerance. 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 ? food allergy/intolerance. CC: C/O severe and persistent diarrhea and GI upset. Pt reports abd pain and cramping whenever consuming anything dairy related. Pt states that even lactose free items can sometimes cause similar sx. Pt denies any evidence of rectal bleeding, or additional sx at this time. Computer Graphic Artist Required: No Accompanied by: Mother Allergies No Known Allergies Allergy (Verified 05/20/25 14:23) HPI HPI Chronic diarrhea, ? food intolerance.: Details: 24-year-old male with past medical history of and anxiety, diarrhea, food allergies is here today for initial consultation. Patient is here accompanied by his mom. Patient reports that no metal what he eats he feels like he has to have a bowel movement immediately. Usually the stool is loose. This happened few times throughout the day. Patient does admit that it is worse when he is anxious or stressed out. He did noticed that most of the time when he has a bowel movement he will have loose stools. Sometimes food that is lactose free will cause these symptoms. Patient denies any melena, hematochezia, unintentional weight loss or ribbon like stools. Patient denies any mucus in his stool. Patient denies any dyspepsia, dysphagia or odynophagia. Patient denies any acid reflux. Patient denies any nausea or vomiting. [facility] Surgical History [employer] teeth removed Family History (Updated 05/20/25 @ 14:33 by MERRY Klein) Maternal Grandmother Diabetes Ulcerative colitis Maternal Grandfather Cancer Paternal Grandfather Alcoholism Paternal Grandmother Alcoholism Other Substance use Social History Housing: House Alcohol intake: current Patient Tobacco Use Status: Former Tobacco user (Just tried it. ) Years Smoked: 2 e-Cigarette/Vaping Use: Never Used Second Hand Smoke Exposure: Yes service: No Current occupational status: unemployed Cognitive needs: No Hearing needs: No Vision needs: No Review of Systems Const Denies weight gain and Denies weight loss ENT Reports no additional complaints, Denies dysphagia and Denies odynophagia Card Reports no additional complaints Resp Reports no additional complaints GI Denies abdominal pain, Denies belching, Denies melena, Reports bloating, Denies change in bowel habits, Denies dysphagia, Denies excessive flatus, Denies dyspepsia, Denies heartburn, Denies diarrhea, Reports loose stools, Denies nausea, Denies odynophagia and Denies vomiting Reports no additional complaints Musc Reports no additional complaints Neuro Reports no additional complaints Psych Reports no additional complaints Endo Reports no additional complaints Physical Exam Vital Signs: Last Vital Signs Pulse 84 05/20/25 14:34 BP 148/70 H 05/20/25 14:34 Pulse Ox 98 05/20/25 14:34 Oxygen Delivery Method Room Air 05/20/25 14:34 BMI result Body Mass Index 24.3 Const General: healthy appearing, no acute distress and well developed Nutritional Appearance: well nourished Orientation/consciousness: patient oriented x3 Resp Effort & Inspection: normal respiratory effort, able to speak in complete sentences, no tracheal deviation and symmetric chest movement Auscultation: clear to auscultation bilaterally Cardio Rate: regular rate GI Inspection: Yes normal to inspection and No distended Palpation (GI): Soft to palpation, not firm, nontender and No hepatosplenomegaly present Auscultation: normal bowel sounds General: Yes no CVA tenderness Back/Spine/Pelvis Back: no CVA tenderness Skin General skin exam: elasticity normal, turgor normal and dry skin Neuro General: patient oriented x3 Psych Appearance: grossly normal Mental Status: mental status grossly normal Assessment & Plan Assessment & Plan (1) Frequent loose stools: Code(s): R19.7 - Diarrhea, unspecified Category: Medical Qualifiers: Diarrhea type: unspecified type Qualified Code(s): R19.7 - Diarrhea, unspecified (2) Postprandial diarrhea: Code(s): K52.9 - Noninfective gastroenteritis and colitis, unspecified (3) Postprandial abdominal bloating: Code(s): R14.0 - Abdominal distension (gaseous) (4) Anxiety: Code(s): F41.9 - Anxiety disorder, unspecified Category: Medical Plan Will check thyroid, transglutaminase, rule out malabsorption issues fecal fat. PCP already ruled out IBD. This is most likely IBS provoked with an anxiety and food. Discussed with patient low FODMAP diet. List of food recommended as well as list of food to avoid given to patient. Patient will avoid lactose and gluten as well to see if things will be different. Patient will try fiber supplement daily as well as pre and probiotics. I will see patient in 3 months, sooner on as needed basis. Patient is agreeable to this plan and verbalizes understanding of instructions. He was given the opportunity to ask questions and all questions answered. Thank you for allowing me to participate in his care Orders: Orders TSH reflex Free T4 05/20/25 K59.00 - Constipation, unspecified Transglutaminase IgA 05/20/25 R10.9 - Unspecified abdominal pain Vitamin B12 and Folate 05/20/25 R19.7 - Diarrhea, unspecified Vitamin D 25-OH (D2 and D3) 05/20/25 E55.9 - Vitamin D deficiency, unspecified Fecal Fat Qualitative 05/20/25 R19.7 - Diarrhea, unspecified Coding Level of Care Code New Pt Level 3 (70080) Diagnoses Diarrhea, unspecified type R19.7 Diarrhea type: unspecified type Postprandial diarrhea K52.9 Postprandial abdominal bloating R14.0 Anxiety F41.9 Time Spent (min) 40 Comment 30 minutes spent with patient and additional 10 minutes spent reviewing his records
[2025-05-20 14:34] VITALS: BP 148/70; PULSE 84; O2SAT 98; BMI 24.3
--- OUTSIDE RECORDS SUMMARY | 2025-05-20 18:20 | XMS_ITS | Clinical Summary ---
Author Organization [facility] Address [address] [place] [address] Phone Care Team Providers Care Tractor Trailer Driver Name Role Phone Unavailable Primary Care Provider [...]
--- OUTSIDE RECORDS SUMMARY | 2025-05-20 18:20 | XMS_ITS | Encounter Summary ---
Author Organization [facility] Address [address] [place] [address] Phone Care Team Providers Care Stave Jointer Name Role Phone Contreras Hightower MD Primary Care Provider [phone] Encounter Details Date Type Department Care Team (Late st Contact Info) Description 10/22/2017 Conversion Encounter [facility] [address] [place] [address] Contreras Hightower MD [address] [place] [address] Social History Tobacco Use Types Packs/Day Years [...] on filedocumented in this encounter Care Teams Stave Jointer Relationship Specialty Start Date End Date Contreras Hightowre MD [address] [place] [address] PCP - General 10/11/17 04/01/24 documented as of this encounter
--- OUTSIDE RECORDS SUMMARY | 2025-05-20 18:20 | XMS_ITS | Encounter Summary ---
Author Organization [facility] Address [address] [place] [address] Phone Care Team Providers Care Call Center Specialist Name Role Phone Contreras Hightower MD Primary Care Provider [phone] Encounter Details Date Type Department Care Team (Late st Contact Info) Description 10/22/2017 Conversion Encounter [facility] [address] [phone] Social History Tobacco Use Types Packs/Day Years [...] on filedocumented in this encounter Care Teams Call Center Specialist Relationship Specialty Start Date End Date Contreras Hightower MD [address] [place] [address] PCP - General 10/11/17 04/01/24 documented as of this encounter
== END 2025-05-20 15:51 | disposition home or self-care (01) ==
LOC: HO.HGI 14:06
PROVIDERS: PCP Internal Medicine; Visit Provider Nurse Practitioner Family
DX: R19.7 Diarrhea, unspecified (principal); K52.9 Noninfective gastroenteritis and colitis, unspecified; R14.0 Abdominal distension (gaseous); F41.9 Anxiety disorder, unspecified
CPT/HCPCS: 99203